=== PATIENT | female | born 1970 | race Caucasian/White ===

== ENCOUNTER 2018-07-05 12:24 | Inpatient (IN) | payer OTHER ==
[~2018-07-05] VITALS: Ht 162.6 cm; Wt 55.3 kg
[2018-07-05] VITALS (11 sets, daily range): BP systolic 92–114; BP diastolic 66–80
--- NOTE | 2018-07-05 12:24 | NUR ---
KIEL [id number] AND [place] WHO STATE THEY WERE CALLED BY PT'S WHO REPORTED PT TOOK AMITRIPTYLINE 20ML LIQ (40MG/ML) AND CLONAZEPAM 20ML LIQ (2.5MG/ML) AT APPROX 1030 THIS MORNING. EMS ARRIVES WITH EMPTY BOTTLES OF EACH MEDICATION. PT IS UNRESPONSIVE UPON ARRIVAL, PT IMMEDIATELY PLACED IN ROOM 1A. , NURSING STAFF AND LAWN MOWER MECHANIC AT BEDSIDE.
[2018-07-05] MEDS ORDERED: SUCCINYLCHOLINE CHLORIDE 200 MG/10 ML VIAL MC ONE (12:25)
--- NOTE | 2018-07-05 12:28 | NUR ---
Pt intubated by with 7.0 ET Tube, 23cm at lipline. Pt placed on vent by ENROLLED NURSE.
[2018-07-05] MEDS ORDERED: MIDAZOLAM HCL 5 MG/ML VIAL ONE (12:29)
[2018-07-05] MEDS ORDERED: PROPOFOL 100 ML ONE (12:32)
[2018-07-05] MEDS ORDERED: CLONAZEPAM (12:39)
[2018-07-05] MEDS ORDERED: AMITRIPTYLINE (12:39)
[2018-07-05] MEDS ORDERED: PROPOFOL 100 ML IV PRN ×2 (12:45→14:45)
[2018-07-05] MEDS ORDERED: SUCCINYLCHOLINE CHLORIDE 200 MG/10 ML VIAL IV ONE (12:45)
[2018-07-05] MEDS ORDERED: [UNRECOGNIZED DRUG - OTHER] IV ONE (12:45)
[2018-07-05] MEDS ORDERED: IV NORMAL SALINE 1000 ML BAG IV ONE ×2 (12:45→13:30)
--- NOTE | 2018-07-05 12:45 | NUR ---
Pt's is at bedside speaking with about pt's prognosis and plan of care. Per pt has no medical history or allergies and is not prescribed any medications. Per the medications the pt took are prescribed for him.
[2018-07-05 12:56] LABS: EOSINOPHILS # (AUTO) 0.1 K/uL (0.0-0.7); HEMATOCRIT 36.9 % (31.2-41.9); HEMOGLOBIN 12.5 g/dL (10.9-14.3); LYMPHOCYTES # (AUTO) 1.1 K/uL (20.0-40.0); LYMPHOCYTES % (AUTO) 32.6 % (20.5-51.5); MEAN CORPUSCULAR HEMOGLOBIN 32.5 uug (24.7-32.8); MEAN CORPUSCULAR HGB CONC 34 g/dL (32.3-35.6); MEAN CORPUSCULAR VOLUME 95.8 fL (75.5-95.3); MONOCYTES # (AUTO) 0.3 K/uL (2.0-10.0); MONOCYTES % (AUTO) 7.3 % (0.0-11.0); NEUTROPHILS % (AUTO) 56.1 % (38.5-71.5); PLATELET COUNT (AUTO) 172 K/uL (179-408); RED BLOOD CELL COUNT(AUTO) 3.85 MIL/uL (3.63-4.92); WHITE BLOOD COUNT (AUTO) 3.5 K/uL (3.8-11.8)
[2018-07-05 13:02] LABS: CARBON DIOXIDE 24 mmol/L (21-32); CHLORIDE 108 mmol/L (98-107); CREATININE 0.8 mg/dL (0.6-1.3); GLUCOSE 122 mg/dL (74-106); POTASSIUM 3.8 mmol/L (3.5-5.1); UREA NITROGEN, BLOOD 10 mg/dL (7-18)
[2018-07-05 13:03] LABS: ETHANOL < 3 MG/DL (0-0)
[2018-07-05 13:07] LABS: ALANINE AMINOTRANSFERASE 22 U/L (14-59); ALKALINE PHOSPHATASE 27 U/L (50-136); ASPARTATE AMINOTRANSFERASE 16 U/L (15-37); BILIRUBIN,DIRECT 0.1 mg/dL (0.0-0.2); BILIRUBIN,TOTAL 0.2 mg/dL (0.2-1.0); TOTAL PROTEIN, SERUM 6.6 g/dL (6.4-8.2)
[2018-07-05 13:11] LABS: ACETAMINOPHEN < 2.0 ug/mL (10-30)
[2018-07-05 13:15] LABS: THYROID STIMULATING HORMONE 3.307 mIU/mL (0.358-3.740)
[2018-07-05 13:17] LABS: ABG BASE EXCESS -1.5 mmol/L; ABG HCO3 21.6 mmol/L; ABG PCO2 31.3 mmHg (35.0-45.0); ABG PH 7.457 (7.350-7.450); ABG PO2 576.3 mmHg (75.0-100.0); ABG SITE RIGHT RADIAL; ABG TOTAL HEMOGLOBIN 12.1 G/dL (12.0-16.0); COHb 0.6 % (0.5-1.5); MetHb 0.2 % (0.0-1.5); VENT MODE VENT - A/C; VT, ABG 500 mL
--- NOTE | 2018-07-05 13:20 | NUR ---
diprivan drip stoped at this point. will continue to monitor the pt.
--- NOTE | 2018-07-05 13:20 | NUR ---
after agb MD order to decreased RR to 12 and FiO2 to 50%. tube secured at 23cm at the lipline. SpO2 100% no SOB noted.
[2018-07-05 13:26] LABS: *BILIRUBIN,URIN NEGATIVE (NEGATIVE); *BLOOD, URINE 3+ (NEGATIVE); *CLARITY,URINE CLEAR (CLEAR); *COLOR,URINE YELLOW (YELLOW); *KETONES,URINE NEGATIVE (NEGATIVE); *UROBILINOGEN,URINE 0.2 E.U./dl (NORMAL); LEUKOCYTE ESTERASE ,URINE NEGATIVE (NEGATIVE); NITRITE, URINE NEGATIVE (NEGATIVE); PH,URINE 6.5 (5.0-8.0); UGLUCOSE NEGATIVE (NEGATIVE)
[2018-07-05 13:28] LABS: *URINE HCG, QUAL NEGATIVE (NEGATIVE)
[2018-07-05 13:30] LABS: BACTERIA,URINE FEW /HPF (NONE SEEN); WBC,URINE 0-3 /HPF (0-3)
--- NOTE | 2018-07-05 13:30 | NUR ---
mojgan del cid DNP, at bedside.
--- NOTE | 2018-07-05 13:35 | NUR ---
Pt intubated in ER place on tiera with setting of AC 16, VT 500, +5, 100% with #7 ETT secured at aprox 23cm at the lipline. secured with anchorfast device. breath sounds heard equally and bilaterally. good color on capnography. good skin interagency on area of application. suction pt for small amount of thin clear secretion. SpO2 of 100%. ambubag at pt beside.
[2018-07-05 13:37] LABS: *AMPHETAMINE, URINE NEGATIVE (NEGATIVE); *BARBITURATE, URINE NEGATIVE (NEGATIVE); *CANNABINOID, URINE NEGATIVE (NEGATIVE); *COCCAINE, URINE NEGATIVE (NEGATIVE); *OPIATE, URINE NEGATIVE (NEGATIVE); *PHENCYCLIDINE SCREEN,URINE NEGATIVE (NEGATIVE)
--- NOTE | 2018-07-05 13:42 | NUR ---
Poison Control contacted, case #[id number]. [place]=Supportive. Per poison control, administer Bicarbonate if patient's QRS widens, patient becomes hemodynamically unstable, or begins convulsing. Replace electrolytes if low. Patient at risk for seizures and tussauds. BRIGETTE notified. Addendum: 07/05/18 at 1352 by KRISTIN Risk for Torsades de pointes
--- NOTE | 2018-07-05 13:56 | NUR ---
pt going to ct of head accompanied by rt and will be transferd to [facility]. Addendum: 07/05/18 at 1400 by RANDELL oked by mojgan Little. report given to sharee cerna.
--- NOTE | 2018-07-05 14:15 | NUR ---
Pt received from ER intubated ETT 7.0, 23cm@lip with continuous ventilation settings as follows: AC-16, TV-500ml, 100% FiO2, and PEEP-5. Pt sedated. VSS wnl and nad noted upon admission. Addendum: 07/05/18 at 1422 by WILMAN LUA RN *Disregard ventilation settings above. Current ventilation settings are as follows: AC-12, TV-500ml, 50% FiO2, and PEEP-5.
--- NOTE | 2018-07-05 14:18 | NUR ---
Pt brought up to CCU bed [address] scan[address] pt on tiera with setting of AC 12, VT500, +5, FiO2 50%. SpO2 100%. size 7 tube secured with anchorfast apox 23cm at the lipline. ambubag at pt bedside. vent plugged into red outlet.
[2018-07-05] MEDS ORDERED: Z GUARD REMEDY PASTE 57 GM TUBE TOP PRN (14:45)
[2018-07-05] MEDS ORDERED: ACETAMINOPHEN 650 MG SUPP.RECT RC PRN (14:45)
[2018-07-05] MEDS ORDERED: ONDANSETRON 4 MG/2 ML VIAL IV PRN (14:45)
--- NOTE | 2018-07-05 14:50 | NUR ---
PT ON ASH VENT, SETTINGS POST ABG ARE AC 12, Vt 500, +5, 40% FIO2. TOLERATING SETTINGS WELL. 7.0 ETT IS PATENT AND SECURED WITH ANCHOR FAST, APPROX, 23CM LIP, RIGHT SIDE. ALARMS ARE ON AND AUDIBLE, BVM AT BEDSIDE. WILL CONTINUE TO MONITOR.
[2018-07-05] MEDS: IV D5W-0.45% NS +20 KCL 1,000 ML IV PRN (15:58)
--- NOTE | 2018-07-05 17:00 | NUR ---
at bedside, and updated on present condition, routine care that will be done, and patient on ventilator and will be evaluated by the pulmonary MD when patient is stable. Zay Foote RN
--- NOTE | 2018-07-05 17:40 | NUR ---
Spoke with Dr. Mason (Pulmonary) on the telephone and made aware of pt's need for consultation. MD to see pt tomorrow.
--- NOTE | 2018-07-05 18:00 | NUR ---
Patient remains at bedside, and given privacy to visit with patient. Zay Foote RN
--- NOTE | 2018-07-05 20:00 | NUR ---
RECEIVED PT.OBTUNDED, ORALLY INTUBATED TO VENT W/ SETTINGS OF AC-12, TV-500, FIO2-40%, PEEP-+5 W/ O2 SAT OF 100%. SUCTIONED VIA ETT & ORALLY W/ MINIMAL THIN WHITISH MUCOUS. IVF D51/2NS W/ 20MEQ KCL @ 75 CC/HR ON LFA. AFEBRILE, BP STABLE. CHECKED QTC & RECORDED.REPOSITIONED ON HER SIDE W/ HOB ELEVATED.
--- NOTE | 2018-07-05 20:05 | NUR ---
QTC MEASUREMENT 300MS.
--- NOTE | 2018-07-05 21:07 | NUR ---
PT ON CONT ASH VENT WITH 7.0 ET/TUBE AND 23CM LIP LINE, IN PLACE AND SECURED, WITH CURRENT VENT SETTINGS, A/C 12,VT 500ML, PEEP5, 40%, PT DOES ASSIST AT TIMES, BUT IS SEDATED ON DIPRIVAN, GOOD COUGH EFFORT, VERY LITTLE WHITISH TINGE SECRETIONS, AND SUCTION MOUTH BASICALLY CLEAR, NO VENT CHANGES MADE AT THIS TIME, WILL MONITOR , AMBU BAG AT BEDSIDE,ALL VENT ALARMS GOOD. Marilu MATSONP Addendum: 07/05/18 at 2110 by TONEY HERNANDEZ RT Amended: Links added.
[2018-07-05] MEDS: ENOXAPARIN SODIUM 40 MG/0.4 ML DISP.SYRIN SQ SCH (21:21)
--- NOTE | 2018-07-05 22:00 | NUR ---
QTC MEASUREMENT IS 360MS.
--- NOTE | 2018-07-05 22:00 | NUR ---
HS CARE DONE. ORAL CARE DONE. REPOSITIONED W/ HOB ELEVATED.
[2018-07-06] VITALS (34 sets, daily range): BP systolic 90–140; BP diastolic 54–81
--- NOTE | 2018-07-06 | NUR ---
QTC MEASUREMENT I1 300MS.
--- NOTE | 2018-07-06 02:00 | NUR ---
QTC MEASUREMENT IS 300MS.
--- NOTE | 2018-07-06 04:00 | NUR ---
AM CARE DONE. ORAL CARE DONE. SUCTIONED & REPOSITIONED W/ HOB ELEVATED.
--- NOTE | 2018-07-06 04:05 | NUR ---
QTC MEASURED- 300MS.
[2018-07-06 05:00] LABS: BASOPHILS % (AUTO) 0.4 % (0.0-2.0); EOSINOPHILS # (AUTO) 0.1 K/uL (0.0-0.7); EOSINOPHILS % (AUTO) 1.7 % (0.0-7.0); HEMATOCRIT 37.1 % (31.2-41.9); HEMOGLOBIN 12.8 g/dL (10.9-14.3); LYMPHOCYTES # (AUTO) 1.3 K/uL (20.0-40.0); MEAN CORPUSCULAR HEMOGLOBIN 33.2 uug (24.7-32.8); MEAN CORPUSCULAR HGB CONC 34 g/dL (32.3-35.6); MEAN CORPUSCULAR VOLUME 96.5 fL (75.5-95.3); MONOCYTES # (AUTO) 0.4 K/uL (2.0-10.0); MONOCYTES % (AUTO) 5.6 % (0.0-11.0); NEUTROPHILS # (AUTO) 5.4 K/uL (1.8-8.9); NEUTROPHILS % (AUTO) 74.3 % (38.5-71.5); PLATELET COUNT (AUTO) 164 K/uL (179-408); RED BLOOD CELL COUNT(AUTO) 3.85 MIL/uL (3.63-4.92); WHITE BLOOD COUNT (AUTO) 7.3 K/uL (3.8-11.8)
[2018-07-06 05:18] LABS: THYROID STIMULATING HORMONE 6.683 mIU/mL (0.358-3.740)
[2018-07-06 05:55] LABS: BILIRUBIN,TOTAL 0.3 mg/dL (0.2-1.0); CREATININE 0.7 mg/dL (0.6-1.3); MAGNESIUM 1.9 mg/dL (1.8-2.4); PHOSPHOROUS 2.9 mg/dL (2.5-4.9); POTASSIUM 3.7 mmol/L (3.5-5.1); TOTAL PROTEIN, SERUM 6.1 g/dL (6.4-8.2)
--- NOTE | 2018-07-06 06:00 | NUR ---
ORAL CARE DONE, SUCTIONED & REPOSITIONED W/ HOB ELEVATED.
[2018-07-06] MEDS: IV D5W-0.45% NS +20 KCL 1,000 ML IV PRN ×2 (06:05→19:21)
--- NOTE | 2018-07-06 06:05 | NUR ---
QTC MEASUREMENTIS 360 MS.
--- NOTE | 2018-07-06 07:15 | NUR ---
PT ON ASH VENT, SETTINGS AC 12, Vt 500, +5, 40% FIO2. TOLERATING SETTINGS WELL. 7.0 ETT IS PATENT AND SECURED WITH ANCHOR FAST, APPROX, 22-23CM LIP, RIGHT SIDE. ALARMS ARE ON AND AUDIBLE, BVM AT BEDSIDE. NO WEANING/ABG'S FOR THIS AM. WILL CONTINUE TO MONITOR.
--- NOTE | 2018-07-06 08:00 | NUR ---
0.460MS QTc interval for 0800 EKG. Addendum: 07/06/18 at 0958 by WILMAN LUA RN 460ms*
--- NOTE | 2018-07-06 10:00 | NUR ---
QtC interval 517ms.
--- NOTE | 2018-07-06 10:32 | NUR ---
MEGAN Neely here to see pt. Full report given. New orders received. Pt to start weaning trials per MD. RT contacted and made aware.
--- NOTE | 2018-07-06 11:00 | NUR ---
Radiology here to take CXR. CXR image shown here to MEGAN Neely. Pt to start weaning trials.
--- NOTE | 2018-07-06 11:05 | NUR ---
Pt placed on CPAP 5, PS 10 for weaning trial by respiratory therapist.
--- NOTE | 2018-07-06 11:05 | NUR ---
WEANING TRIAL PER DR OLIVER, SEDATION TURNED-OFF, CPAP5/PS10 STARTED.
--- NOTE | 2018-07-06 11:42 | NUR ---
Dr. Mason here to see pt. Full report given. New orders received.
--- NOTE | 2018-07-06 12:00 | NUR ---
Pt placed back on continuous ventilation settings as follows: AC-14, TV-500ml, 30% FiO2, and PEEP-5.
[2018-07-06] MEDS: PANTOPRAZOLE SODIUM 40 MG VIAL IV SCH (12:01)
--- NOTE | 2018-07-06 15:20 | NUR ---
PT NOT WAKING COMPLETELY, PT PLACED ON AC SETTINGS BY DR OCONNOR
[2018-07-06 16:44] LABS: ABG BASE EXCESS -4.5 mmol/L; ABG PCO2 30.6 mmHg (35.0-45.0); ABG PH 7.411 (7.350-7.450); ABG PO2 174.2 mmHg (75.0-100.0); ABG SITE RIGHT RADIAL; ABG TOTAL HEMOGLOBIN 12.6 G/dL (12.0-16.0); CPAP,BG 0 cmH20; MetHb 0.2 % (0.0-1.5); VENT MODE CPAP; VT, ABG 150 mL
--- NOTE | 2018-07-06 16:49 | NUR ---
Spoke with Dr. Mason on the telephone and reported ABG results for CPAP weaning trial. stated that it was okay to extubate pt.
[2018-07-06] MEDS ORDERED: DC PROPOFOL ONCE EXTUBATED XX PRN (16:50)
--- NOTE | 2018-07-06 16:50 | NUR ---
PT EXTUBATED UPON DR OCONNOR'S IRDER. PLACED ON 3 LPM NC WITH PATIENT SATURATING 100% AT THIS TIME. IS A BEDSIDE. WILL MONITOR CONDITION. NURSE WILMAN REQUESTED THAT THE VENTILATOR BE ON STAND BYE. Addendum: 07/06/18 at 1711 by JOZEF MATHEWS RT OPT WAS EXTUBATEDUPON DR. OCONNOR'S ORDER.
--- NOTE | 2018-07-06 16:50 | NUR ---
Pt extubated by respiratory therapist and placed on 3L NC. Pt saturating wnl and nad noted. Will continue to monitor pt and keep ventilator on standby.
--- NOTE | 2018-07-06 18:43 | NUR ---
DON FROM POISON CONTROL CALLED FOR UPDATE. WILL CALL ONE MORE TIME FOR ANOTHER UPDATE TO BE ABLE TO CLOSE THE CASE. SET OF VITALS WERE OBTAINED AND RHYTHM WITH NO REPORTED QT OR QRS ABNORMALITIES WAS OBTAINED AND RECORDED.
--- NOTE | 2018-07-06 19:15 | NUR ---
patient in bed s/p extubated at 1430, no respiratory distress noted on nasal cannula at 3 l min o2 saturation 100%, breathing even and unlabored. hob up . patient on and off asleep . follow simple commands .SR on the heart monitor rate 89. speaks in whispering voice , able to verbalized needs .continue to monitor v/s and levels of comfort .
--- NOTE | 2018-07-06 20:05 | NUR ---
patients sister and friend came to visit her and undated with patients condition and question answered .
[2018-07-06] MEDS: ENOXAPARIN SODIUM 40 MG/0.4 ML DISP.SYRIN SQ SCH (21:03)
--- NOTE | 2018-07-06 21:45 | NUR ---
patients getting out on bed , very restless/agitated ,taking off monitor,on and off follow simple commands . called epic .
--- NOTE | 2018-07-06 22:06 | NUR ---
Marilu FIGUEROA called back for the medical center ,obtained ativan 1MG IVP time dose ,but still advised to call BENITO since his the one consumer services consultant for in house .done .
[2018-07-06] MEDS ORDERED: LORAZEPAM 2 MG/1 ML VIAL IV ONE ×2 (22:15→22:45)
--- NOTE | 2018-07-06 22:50 | NUR ---
patient came visited patient able to communicate with and he sister at bedside .patient gets more anxious and agitated and tries to get oob and removing monitor and 0xygen keeps turning and unable to get comfortable in bed . requested to give her medication to calm her down .given Ativan 0.5 mg prn see flow sheet .
[2018-07-07] VITALS (24 sets, daily range): BP systolic 91–107; BP diastolic 52–68
--- NOTE | 2018-07-07 00:59 | NUR ---
patient in bed sleeping v/s wnl no s/s of pain . resting in bed comfortably .continue to provide safety .
[2018-07-07] MEDS: LORAZEPAM 2 MG/1 ML VIAL IV PRN ×2 (03:15→06:45)
--- NOTE | 2018-07-07 03:15 | NUR ---
agitated and restless getting oob ,removing monitor .patient whispering with very soft vice unable to understand,advised to speak louder still whispering . given prn medication for anxiety . close observation done .
[2018-07-07 05:06] LABS: BASOPHILS % (AUTO) 0.3 % (0.0-2.0); EOSINOPHILS # (AUTO) 0.1 K/uL (0.0-0.7); EOSINOPHILS % (AUTO) 1.1 % (0.0-7.0); HEMATOCRIT 35.5 % (31.2-41.9); LYMPHOCYTES % (AUTO) 13.8 % (20.5-51.5); MEAN CORPUSCULAR HEMOGLOBIN 32.5 uug (24.7-32.8); MEAN CORPUSCULAR HGB CONC 34 g/dL (32.3-35.6); MEAN CORPUSCULAR VOLUME 96.3 fL (75.5-95.3); MONOCYTES # (AUTO) 0.4 K/uL (2.0-10.0); NEUTROPHILS # (AUTO) 5.7 K/uL (1.8-8.9); NEUTROPHILS % (AUTO) 78.8 % (38.5-71.5); PLATELET COUNT (AUTO) 172 K/uL (179-408); RED BLOOD CELL COUNT(AUTO) 3.68 MIL/uL (3.63-4.92); WHITE BLOOD COUNT (AUTO) 7.3 K/uL (3.8-11.8)
[2018-07-07 05:19] LABS: CREATININE 0.7 mg/dL (0.6-1.3); MAGNESIUM 1.7 mg/dL (1.8-2.4); PHOSPHOROUS 3.9 mg/dL (2.5-4.9); POTASSIUM 3.5 mmol/L (3.5-5.1)
--- NOTE | 2018-07-07 06:30 | NUR ---
patient confused getting oob ,bilateral legs hanging in the side rails,hands reaching down to the floor . reorientation and teaching done and reposition back in bed and connected back to monitor .call light place with in reach and advised patient to call and not to get oob by self .
--- NOTE | 2018-07-07 07:44 | NUR ---
RECEIVED A 47 Y/O FEMALE PT A CASE OF DRUG OVERDOSE, PT IS IN BED ASLEEP. ALERT, DISORIENTED,BREATHING SPONTANEOUSLY VIA ROOM AIR, CONNECTED TO CG MONITOR SHOWING SR. PT HAS TWO IV LINES RECEIVING IVF D5 1/2 NS +20MEQ KCL @75ML/HR.
[2018-07-07] MEDS: IV D5W-0.45% NS +20 KCL 1,000 ML IV PRN ×2 (08:47→21:54)
[2018-07-07] MEDS: PANTOPRAZOLE SODIUM 40 MG VIAL IV SCH (08:47)
[2018-07-07] MEDS ORDERED: MAGNESIUM SULFATE/D5W 100 ML IV SCH (10:30)
--- NOTE | 2018-07-07 10:45 | NUR ---
SEEN BY HARSH OLIVER DNP AND AMANDA STUDENT AMERICAN SIGN LANGUAGE TEACHER, ASSESSMENT DONE, ALL ORDERS RECEIVED. AT BEDSIDE ALL CONCERNS ADDRESSED. NEW ORDERS RECEIVED
--- NOTE | 2018-07-07 13:00 | NUR ---
SEEN BY DR BELL, PULMONARY SERVICES. UPDATES GIVEN ON NO NEW ORDERS.
--- NOTE | 2018-07-07 20:00 | NUR ---
rounds made patient sleeping in bed ,no s/s/ of distress breathing even and unlabored on room air .SR on the heart monitor rate 85.continue to monitor v/s and safety .
[2018-07-07] MEDS: ENOXAPARIN SODIUM 40 MG/0.4 ML DISP.SYRIN SQ SCH (20:20)
--- NOTE | 2018-07-07 21:00 | NUR ---
patient at bedside and question answered ,stayed with patient most of the time .
--- NOTE | 2018-07-07 21:30 | NUR ---
due Lovenox given and patient cooperative and follow commands .patient is coherent and able to communicate and very thankful to our care ,she said her throat sore when swallowing he water ,infirmed its going to ge better ,explained was intubated and was on the vent for airway protection .nod head to and advised to call if its not getting any better .patient on room air and no respiratory distress noted breathing even and unlabored .
[2018-07-08] VITALS (15 sets, daily range): BP systolic 90–109; BP diastolic 55–76
--- NOTE | 2018-07-08 01:18 | NUR ---
patient in bed able to reposition self [id number]. patient more verbal voice is clear and patient able to verbalized intent ,alert and awake,answer question appropriately .patient asked for water ,hob up ,able to swallow aspiration precaution observed .call light placed with in reach and advised patient to call for assistance verbalized understanding .
--- NOTE | 2018-07-08 02:30 | NUR ---
PATIENT ASLEEP. NO RESPIRATORY DISTRESS O2 SAT 100%. NO C/O PAIN. VSS. ABLE TO TURN SELF IN BED. CALL LIGHT IN REACH AND BED ALARM SET
--- NOTE | 2018-07-08 06:39 | NUR ---
AM CARE PROVIDED INCLUDING ORAL CARE , SKIN CARE AND CECILIO CARE. SCANT BROWN VAGINAL DRAINAGE NOTED , NEW PERIPAD APPLIED.PT IS AWAKE ALERT AND ORIENTED X4 AT THIS TIME. SPEECH IS CLEAR. ABLE TO PARTICIPATE IN AM CARE AND MOVE FREELY IN THE BED.PUTTING ON FACIAL MAKEUP. NO C/O PAIN. VSS. NO RESPIRATORY DISTRESS. O2 SAT 100% ON RA. NO TEMP. CALL LIGHT IN REACH AND BED ALARM SET.
--- NOTE | 2018-07-08 08:07 | NUR ---
RECEIVED A 47 Y/O FEMALE PT A CASE OF DRUG OVERDOSE, PT IS IN BED ASLEEP. ALERT, OX3,BREATHING SPONTANEOUSLY VIA ROOM AIR, CONNECTED TO ECG MONITOR SHOWING SR. PT HAS TWO IV LINES RECEIVING IVF D5 1/2 NS +20MEQ KCL @75ML/HR. URINATING VIA FC.
[2018-07-08] MEDS: LEVOTHYROXINE SODIUM 100 MCG TABLET PO SCH ×2 (09:00→12:12)
[2018-07-08] MEDS: PANTOPRAZOLE SODIUM 40 MG TABLET.DR PO SCH (09:35)
[2018-07-08] MEDS ORDERED: LEVOTHYROXINE SODIUM 100 MCG TABLET PO SCH (09:45)
[2018-07-08 09:55] LABS: BASOPHILS % (AUTO) 0.4 % (0.0-2.0); EOSINOPHILS # (AUTO) 0.1 K/uL (0.0-0.7); EOSINOPHILS % (AUTO) 1.4 % (0.0-7.0); HEMOGLOBIN 12.5 g/dL (10.9-14.3); LYMPHOCYTES # (AUTO) 1.1 K/uL (20.0-40.0); LYMPHOCYTES % (AUTO) 12.2 % (20.5-51.5); MEAN CORPUSCULAR HEMOGLOBIN 32.4 uug (24.7-32.8); MEAN CORPUSCULAR HGB CONC 34 g/dL (32.3-35.6); MONOCYTES # (AUTO) 0.5 K/uL (2.0-10.0); MONOCYTES % (AUTO) 5.5 % (0.0-11.0); NEUTROPHILS # (AUTO) 6.9 K/uL (1.8-8.9); NEUTROPHILS % (AUTO) 80.5 % (38.5-71.5); PLATELET COUNT (AUTO) 192 K/uL (179-408); RED BLOOD CELL COUNT(AUTO) 3.85 MIL/uL (3.63-4.92); WHITE BLOOD COUNT (AUTO) 8.6 K/uL (3.8-11.8)
[2018-07-08 10:04] LABS: CREATININE 0.7 mg/dL (0.6-1.3); POTASSIUM 4.1 mmol/L (3.5-5.1)
[2018-07-08 10:09] LABS: BILIRUBIN,TOTAL 0.4 mg/dL (0.2-1.0); PHOSPHOROUS 3.8 mg/dL (2.5-4.9); TOTAL PROTEIN, SERUM 6.7 g/dL (6.4-8.2)
--- NOTE | 2018-07-08 10:30 | NUR ---
SEEN BY MEGAN LAM, ORDERS TO DC FC & IVF RECEIVED. HELPED PT SIT ON EDGE OF BED, AND STAND ON FLOOR, FELT DIZZY PUT BACK ON BED, WILL CONTINUE TO MONITOR.
--- NOTE | 2018-07-08 11:00 | NUR ---
CALL MADE OUT TO CRISIS TEAM, [facility] TO ASSES PT, SHE INFORMED ME NOT TO CONTACT THEM UNLESS THE PT IS TRYING TO LEAVE OR AMA. OTHERWISE CALL THE TEAM WHEN THE PT IS FOR DISCHARGE. SHE WAS INFORMED THAT THE PT IS FOR TRANSFER AND MEDICALLY STABLE AND NEEDS TO BE ASSESSED, SHE ADVISED ME TO CONTACT HER PSYCHIATRIST INSTEAD. RAILWAY SHUNTER STUDENT AMANDA WORKING WITH DNP HARSH OLIVER INFORMED ASLO S.Marilou GRIFFITHS INFORMED, CALL MADE OUT TO MARITZA, FROM CRISIS TEAM TO ASSESS PT. NO ANSWER VOICE MESSAGE LEFT.
--- NOTE | 2018-07-08 11:45 | NUR ---
PT URINATED USING THE COMMODE CHAIR, FEELS LESS DIZZY AND WAS ABLE TO GO WALK A FEW STEPS IN ROOM, AND THEN BACK TO BED.
--- NOTE | 2018-07-08 15:00 | NUR ---
PT AMBULATED TO THE BATHROOM, URINATED, AND BACK TO BED NO COMPLICATIONS.
--- NOTE | 2018-07-08 18:59 | NUR ---
PATIENT C/O ABDOMINAL PAIN, MEGAN LAM INFORMED, NEW ORDERERS RECEIVED
[2018-07-08] MEDS: HYDROCODONE/APAP 5-325MG TABLET PO PRN (19:18)
--- NOTE | 2018-07-08 19:30 | NUR ---
Report received. Patient admitted DX: Drug overdose. AAO, able to make needs known but somewhat withdrawn. Assessment done. NAD noted. Both saline locks leaking and red. New saline lock inserted to LFA with #22 angio cath. Patient cooperative. Addendum: 07/08/18 at 2213 by INGRID CUELLO RN Amended: Links added. Addendum: 07/08/18 at 2216 by INGRID CUELLO RN Amended: Links added. Addendum: 07/08/18 at 2216 by INGRID CUELLO RN Amended: Links added. Addendum: 07/08/18 at 2216 by INGRID CUELLO RN Amended: Links added. Addendum: 07/08/18 at 2230 by INGRID CUELLO RN Amended: Links added. Addendum: 07/08/18 at 2231 by INGRID CUELLO RN Amended: Links added. Addendum: 07/08/18 at 2240 by INGRID CUELLO RN Amended: Links added. Addendum: 07/08/18 at 2240 by INGRID CUELLO RN Amended: Links added. Addendum: 07/08/18 at 2240 by INGRID CUELLO RN Amended: Links added.
--- NOTE | 2018-07-08 20:30 | NUR ---
Still c/o cramping abdominal pain. Was medicated by am shift @1917. Patient's visited.
[2018-07-08] MEDS: ENOXAPARIN SODIUM 40 MG/0.4 ML DISP.SYRIN SQ SCH (21:09)
[2018-07-09] VITALS: BP 111/62
--- NOTE | 2018-07-09 | NUR ---
Up to the BSC; voided 900ml of slightly cloudy yellow urine. No c/o dizziness. BP stable. Denies suicide ideations.
[2018-07-09 04:00] VITALS: BP 107/64
--- NOTE | 2018-07-09 04:30 | NUR ---
Ambulated to the BR. As per patient she's having pain on urination. Refused am bath at this time but able to changed pad and underwear. Encouraged fluid intake; cranberry juice served.
[2018-07-09 05:01] LABS: BASOPHILS % (AUTO) 0.4 % (0.0-2.0); EOSINOPHILS # (AUTO) 0.2 K/uL (0.0-0.7); EOSINOPHILS % (AUTO) 2.1 % (0.0-7.0); HEMATOCRIT 39.2 % (31.2-41.9); HEMOGLOBIN 13.5 g/dL (10.9-14.3); LYMPHOCYTES # (AUTO) 1.3 K/uL (20.0-40.0); LYMPHOCYTES % (AUTO) 14.7 % (20.5-51.5); MEAN CORPUSCULAR HEMOGLOBIN 33.2 uug (24.7-32.8); MEAN CORPUSCULAR HGB CONC 35 g/dL (32.3-35.6); MEAN CORPUSCULAR VOLUME 96.2 fL (75.5-95.3); MONOCYTES # (AUTO) 0.6 K/uL (2.0-10.0); MONOCYTES % (AUTO) 6.4 % (0.0-11.0); NEUTROPHILS # (AUTO) 6.7 K/uL (1.8-8.9); NEUTROPHILS % (AUTO) 76.4 % (38.5-71.5); PLATELET COUNT (AUTO) 224 K/uL (179-408); RED BLOOD CELL COUNT(AUTO) 4.07 MIL/uL (3.63-4.92); WHITE BLOOD COUNT (AUTO) 8.7 K/uL (3.8-11.8)
[2018-07-09 05:11] LABS: CREATININE 0.9 mg/dL (0.6-1.3); PHOSPHOROUS 4.5 mg/dL (2.5-4.9); POTASSIUM 4.4 mmol/L (3.5-5.1)
--- NOTE | 2018-07-09 05:45 | NUR ---
Up to BSC; voided cloudy yellow urine. Patient also has her menstrual period. Back to bed without c/o dizziness.
[2018-07-09] MEDS: PANTOPRAZOLE SODIUM 40 MG TABLET.DR PO SCH (06:53)
[2018-07-09] MEDS ORDERED: LEVOTHYROXINE SODIUM 125 MCG TABLET PO SCH (07:00)
--- NOTE | 2018-07-09 07:15 | NUR ---
VS stable all night. AAO. QT interval 0.36-0.40 sec. Awaiting for Crisis team evaluation. Report to Ramesh JARAMILLO.
[2018-07-09 08:00] VITALS: BP 98/62
--- NOTE | 2018-07-09 09:07 | NUR ---
Called Ronak (crisis team): and left a message for him to see the pt today for crisis eval.
--- NOTE | 2018-07-09 09:58 | NUR ---
Physical therapy here to see pt for eval.
[2018-07-09] MEDS: HYDROCODONE/APAP 5-325MG TABLET PO PRN (11:00)
[2018-07-09] MEDS ORDERED: ACETAMINOPHEN 325 MG TABLET PO PRN (12:30)
--- NOTE | 2018-07-09 18:48 | NUR ---
Called [facility] and full telephone SBAR report given to CLINT Betts .
--- NOTE | 2018-07-09 19:30 | NUR ---
Report received. Patient awaiting discharge to [facility] in [place]. AAO, depressed, remorseful about what happened. Advised appropriately. NAD noted. Denies suicide ideations.
[2018-07-09 19:48] VITALS: BP 104/73
--- NOTE | 2018-07-09 20:40 | NUR ---
Friend visited. Patient remains emotional, crying. Saline lock dc'd. Ambulance transport here. DC in no apparent distress. All belongings with patient upon DC.
[2018-07-10] MEDS ORDERED: LEVOTHYROXINE SODIUM 100 MCG TABLET PO SCH (07:00)
[2018-07-11] MEDS ORDERED: LEVOTHYROXINE SODIUM 125 MCG TABLET PO SCH (07:00)
== END 2018-07-09 20:40 | DRG 917 ==
LOC: ER 12:24 → CCU 14:14
PROVIDERS: ADMIT Nurse Practitioner Acute Care; ATTEND Nurse Practitioner Acute Care
PROC: 5A1945Z Respiratory Ventilation, 24-96 Consecutive Hours (ICD-10-PCS; principal; 2018-07-05)
PROC: 0BH17EZ Insertion of Endotracheal Airway into Trachea, Via Natural or Artificial Opening (ICD-10-PCS; principal; 2018-07-05)
DX: T43.014A Poisoning by tricyclic antidepressants, undetermined, initial encounter (principal); T42.4X4A Poisoning by benzodiazepines, undetermined, initial encounter; J96.00 Acute respiratory failure, unspecified whether with hypoxia or hypercapnia; Y92.019 Unspecified place in single-family (private) house as the place of occurrence of the external cause; E83.51 Hypocalcemia; E88.09 Other disorders of plasma-protein metabolism, not elsewhere classified; E87.8 Other disorders of electrolyte and fluid balance, not elsewhere classified; R94.31 Abnormal electrocardiogram [ECG] [EKG]; R73.9 Hyperglycemia, unspecified; R40.2432 Glasgow coma scale score 3-8, at arrival to emergency department
CPT/HCPCS: 36415; 36600; 70030-TC; 70450; 71045; 80307; 83735; 84100; 84443; 84703; 85025; 85730; 87070; 87086; 93005; 94002; 94003; A4663; C9113; G0378; G0480; G0480-TC; J0330; J1650; J2060; J2250; J3475; J3490; J7030